=== PATIENT | male | born 1965 | race American Indian/Alaskan Native ===

== ENCOUNTER 2017-04-21 13:54 | Day surgery (SDC) | payer BC, OTHER ==
[2017-04-21] MEDS ORDERED: Glucagon,Human Recombinant 1 MG Vial IM ONE (14:01)
[2017-04-21] MEDS ORDERED: Glucagon,Human Recombinant 1 MG Vial IVPUSH ONE (14:05)
--- NOTE | 2017-04-21 14:05 | EDM.PDOC ---
ED HPI GENERAL MEDICAL PROBLEM - General Chief Complaint: Gastrointestinal Problem Stated Complaint: CHOKING Time Seen by Provider: 04/21/17 13:56 Source of Information: Reports: Patient History Limitations: Reports: No Limitations - History of Present Illness INITIAL COMMENTS - FREE TEXT/NARRATIVE: HISTORY AND PHYSICAL: History of present illness: Patient is a 52-year-old male who presents to the emergency room with complaints of a food bolus in his esophagus. He states he was eating turkey when he felt a piece get stuck in his throat. He does have a previous history of EGDs for food bolus extraction, 3 previous EGDs. This occurred a approximately 1-1/2 hours prior to arrival. Since that time he has been trying to swallow water, soup, food and is unsuccessful. He has no difficulty breathing but is unable to swallow his saliva. With his previous workup, he states he does not have any strictures and has never been dilated. Review of systems: As per history of present illness and below otherwise all systems reviewed and negative. Past medical history: As per history of present illness and as reviewed below otherwise noncontributory. Surgical history: As per history of present illness and as reviewed below otherwise noncontributory. Social history: No reported history of drug or alcohol abuse. Family history: As per history of present illness and as reviewed below otherwise noncontributory. Physical exam: HEENT: Atraumatic, normocephalic, pupils reactive, negative for conjunctival pallor or scleral icterus, mucous membranes moist, throat clear, neck supple, nontender, trachea midline. Lungs: Clear to auscultation, breath sounds equal bilaterally, chest nontender. Heart: S1S2, regular, negative for clicks, rubs, or JVD. Abdomen: Soft, nondistended, nontender. Negative for masses or hepatosplenomegaly. Negative for costovertebral tenderness. Pelvis: Stable nontender. Genitourinary: Deferred. Rectal: Deferred. Extremities: Atraumatic, negative for cords or calf pain. Neurovascular unremarkable. Neuro: Awake, alert, oriented. Cranial nerves II through XII unremarkable. Cerebellum unremarkable. Motor and sensory unremarkable throughout. Exam nonfocal. 1445- After the glucagon was given, the patient is requesting to attempt to try some flat 7-Up - unsuccessful. 1500- the general surgeon, Dr. Boyle was paged at this time. He is currently in a procedure and will come down to evaluate the patient afterwards. The patient is resting easy on the cot and breathes without difficulty. We'll continue to monitor 1520- the general surgery resident is here to evaluate the patient. 1532- Dr. Boyle is here to evaluate the patient. The patient will go back to the OR for EGD. She remained stable and no changes in his status. Diagnostics: x Therapeutics: Glucagon Impression: Esophageal food bolus Plan: To the OR under the care of Dr. Boyle. Definitive disposition and diagnosis as appropriate pending reevaluation and review of above. Onset: Today Duration: Hour(s): - Related Data Allergies Allergy/AdvReac Type Severity Reaction Status Date / Time No Known Allergies Allergy Verified 04/21/17 14:21 Home Meds: Home Meds . [No Known Home Meds] 04/21/17 [History] Past Medical History - Past Health History Medical/Surgical History: Denies Medical/Surgical History Gastrointestinal History: Reports: Other (See Below) Other Gastrointestinal History: 4 egd's to remove food from esophagus - Infectious Disease History Infectious Disease History: Reports: None Social & Family History - Family History Family Medical History: Noncontributory - Tobacco Use Smoking Status *Q: Never Smoker Packs/Tins Daily: 0.5 Second Hand Smoke Exposure: No - Alcohol Use Days Per Week of Alcohol Use: 1 Number of Drinks Per Day: 2 Total Drinks Per Week: 2 - Recreational Drug Use Recreational Drug Use: No ED ROS GENERAL - Review of Systems Review Of Systems: ROS reveals no pertinent complaints other than HPI. ED EXAM, GI/ABD - Physical Exam Exam: See Below (See dictation) Course - Vital Signs Last Recorded V/S: Last Vital Signs Temp 36.5 C 04/21/17 14:22 Pulse 110 H 04/21/17 14:22 Resp 14 04/21/17 14:22 BP 142/87 H 04/21/17 14:22 Pulse Ox 97 04/21/17 14:22 - Orders/Labs/Meds Orders: Active Orders 24 hr Category Date Time Status Notify Provider Consults [RC] ASDIRECTED Care 04/21/17 14:59 Active Consult to Physician [CONS] Stat Cons 04/21/17 14:59 Active Chest 1V Frontal [CR] Stat Exams 04/21/17 14:16 Taken Meds: Medications Discontinued Medications Generic Name Dose Route Start Last Admin Trade Name Janelle PRN Reason Stop Dose Admin Glucagon 1 mg 04/21/17 14:01 04/21/17 14:18 Glucagen IM 04/21/17 14:02 Not Given ONETIME ONE Glucagon 1 mg 04/21/17 14:05 04/21/17 14:35 Glucagen IVPUSH 04/21/17 14:06 1 mg ONETIME ONE Administration Departure - Departure Time of Disposition: 15:34 Disposition: Still A Patient 30 Clinical Impression: Food impaction of esophagus Qualifiers: Encounter type: initial encounter Qualified Code(s): T18.128A - Food in esophagus causing other injury, initial encounter - Discharge Information Referrals: PCP,None [Primary Care Provider] - Forms: ED Department Discharge - My Orders Last 24 Hours: My Active Orders 04/21/17 14:16 Chest 1V Frontal [CR] Stat 04/21/17 14:59 Notify Provider Consults [RC] ASDIRECTED Consult to Physician [CONS] Stat - Assessment/Plan Last 24 Hours: My Active Orders 04/21/17 14:16 Chest 1V Frontal [CR] Stat 04/21/17 14:59 Notify Provider Consults [RC] ASDIRECTED Consult to Physician [CONS] Stat
--- NOTE | 2017-04-21 15:33 | PCM.CONS ---
<Luke Little - Last Filed: 04/21/17 15:25> H&P History of Present Illness - General Date of Service: 04/21/17 Admit Problem/Dx: Food stuck in throat. Source of Information: Patient History Limitations: Reports: No Limitations - History of Present Illness Initial Comments - Free Text/Narative: Mr. Schneider is a 52 year old male with no PMH, only PSH is three previous EGD for meat stuck in his throat which was removed each time, last occurrence 4 years prior, no allergies, no significant family history who presents after eating his first bite of turkey at approximately noon today, feeling it become stuck in his throat, no shortness of breath, no increased chest pain besides pressure at the site of the food, feels nausea and attempts to vomit have only produced spit. Deneis any other abdominal pain, fever, chills. He states the previous three times this has occurred the food was able to be removed without incident and his symptoms quickly resolved. In the ED a fluid challenge was attempted which was not able to pass to his stomach. Onset of Symptoms: Reports: Today Symptom Onset Date: 04/21/17 Symptom Onset Time: 12:00 Location: Reports: Chest Quality: Reports: Pressure Severity: Mild Improves with: Reports: None Worsens with: Reports: None Associated Symptoms: Reports: Nausea/Vomiting. Denies: Chest Pain, Cough, Fever /Chills, Shortness of Breath - Related Data Allergies/Adverse Reactions: Allergies Allergy/AdvReac Type Severity Reaction Status Date / Time No Known Allergies Allergy Verified 04/21/17 14:21 Home Medications: Home Meds . [No Known Home Meds] 04/21/17 [History] Past Medical History - Past Health History Medical/Surgical History: Denies Medical/Surgical History Gastrointestinal History: Reports: Other (See Below) Other Gastrointestinal History: 4 egd's to remove food from esophagus - Infectious Disease History Infectious Disease History: Reports: None Social & Family History - Family History Family Medical History: Noncontributory - Tobacco Use Smoking Status *Q: Never Smoker Packs/Tins Daily: 0.5 Second Hand Smoke Exposure: No - Caffeine Use Caffeine Use: Reports: Coffee - Alcohol Use Days Per Week of Alcohol Use: 1 Number of Drinks Per Day: 2 Total Drinks Per Week: 2 - Recreational Drug Use Recreational Drug Use: No H&P Review of Systems - Review of Systems: Review Of Systems: See Below General: Denies: Fever, Chills, Weakness HEENT: Reports: Other (See HPI) Pulmonary: Reports: No Symptoms Cardiovascular: Reports: No Symptoms Gastrointestinal: Reports: Other (See HPI) Genitourinary: Reports: No Symptoms Musculoskeletal: Reports: No Symptoms Skin: Reports: No Symptoms Psychiatric: Reports: No Symptoms Neurological: Reports: No Symptoms Hematologic/Lymphatic: Reports: No Symptoms Immunologic: Reports: No Symptoms Exam - Exam Exam: See Below - Vital Signs Vital Signs: Last Vital Signs Temp 36.5 C 04/21/17 14:22 Pulse 110 H 04/21/17 14:22 Resp 14 04/21/17 14:22 BP 142/87 H 04/21/17 14:22 Pulse Ox 97 04/21/17 14:22 Weight: 200 lb - Exam Quality Assessment: No: Supplemental Oxygen, Urinary Catheter, Restraints General: Alert, Oriented, Cooperative, Mild Distress HEENT: Conjunctiva Clear, EOMI, Hearing Intact, Posterior Pharynx Clear Neck: Supple, Trachea Midline Lungs: Clear to Auscultation, Normal Respiratory Effort Cardiovascular: Regular Rate, Regular Rhythm GI/Abdominal Exam: Soft, Non-Tender, No Distention Extremities: Normal Inspection, Normal Range of Motion, Normal Capillary Refill Peripheral Pulses: 2+: Radial (L), Radial (R), Dorsalis Pedis (L), Dorsalis Pedis (R) Skin: Warm, Dry, Intact Neurological: Cranial Nerves Intact Neuro Extensive - Mental Status: Alert, Oriented x3, Normal Mood/Affect, Normal Cognition, Memory Intact Psychiatric: Alert, Normal Affect, Normal Mood Consult PN Assessment/Plan Procedures: Procedures EGD REMOVE FOREIGN BODY (10/05/15) ELECTROCARDIOGRAM TRACING (10/05/15) EMERGENCY DEPT VISIT (10/05/15) EMERGENCY DEPT VISIT (07/04/15) THER/PROPH/DIAG INJ IV PUSH (10/05/15) (1) Food impaction of esophagus SNOMED Code(s): 3905154 Code(s): T18.128A - FOOD IN ESOPHAGUS CAUSING OTHER INJURY, INITIAL ENCOUNTER Current Visit: No QualifierTitle: Encounter type: subsequent encounter Qualified Code(s): T18.128D - Food in esophagus causing other injury, subsequent encounter Assessment:: Mr. Schneider is a 52 year old male with no significant PMH, no known allergies, no home medications, who drinks 7 drinks per week and chews tobacco, presents after eating turkey and feeling it lodged in his throat without any other symptoms of shortness of breath, radiating chest pain, fever or chills. He does have nausea and dry heaves productive of only saliva. Patient states this will be the 3-4 time this has happened, last occurrence 4 years prior, always occurs with meat, has been relieved with EGD with extraction with complication in the past. Fluid challenge attempted without improvement. Problem List Initiated/Reviewed/Updated: Yes Plan: The risks, benefits and alternatives of EGD with possible foreign object extraction were discussed including bleeding and perforation which would require transfer. The risk of aspiration was also discussed. The patient stated his agreement with proceeding with the procedure. present at bedside. The patent states he would like to be full code. We will proceed as soon as possible with the above listed procedure. <Joey Boyle - Last Filed: 04/21/17 15:51> Exam - Vital Signs Vital Signs: Last Vital Signs Temp 97.7 F 04/21/17 14:22 Pulse 110 H 04/21/17 14:22 Resp 14 04/21/17 14:22 BP 142/87 H 04/21/17 14:22 Pulse Ox 97 04/21/17 14:22 Consult PN Assessment/Plan Procedures: Procedures EGD REMOVE FOREIGN BODY (10/05/15) ELECTROCARDIOGRAM TRACING (10/05/15) EMERGENCY DEPT VISIT (10/05/15) EMERGENCY DEPT VISIT (07/04/15) THER/PROPH/DIAG INJ IV PUSH (10/05/15) (1) Food impaction of esophagus SNOMED Code(s): 9950964 Code(s): T18.128A - FOOD IN ESOPHAGUS CAUSING OTHER INJURY, INITIAL ENCOUNTER Priority: High Current Visit: Yes Qualifiers: Encounter type: initial encounter Qualified Code(s): T18.128A - Food in esophagus causing other injury, initial encounter Plan: Patient seen and examined with Dr. Little. I agree with his assessment and plan. Esophagogastroduodenoscopy with removal of esophageal foreign body and biopsy. The operative procedure, along with the risks, including, but not limited to, bleeding, perforation, and the need for surgery were discussed with the patient who voices understanding, offers no questions and wishes to proceed.
[2017-04-21] MEDS ORDERED: Rocuronium 10 MG/ML 10 ML Syringe ONE (15:37)
[2017-04-21] MEDS ORDERED: Lidocaine 2% 5 ML SDV ONE (15:37)
[2017-04-21] MEDS ORDERED: Ondansetron 4 MG/2 ML SDV ONE (15:37)
[2017-04-21] MEDS ORDERED: Succinylcholine/Normal Saline 200 MG/10 ML Syringe ONE (15:37)
[2017-04-21] MEDS ORDERED: Midazolam 1 MG/ML 2 ML SDV ONE (15:38)
[2017-04-21] MEDS ORDERED: fentaNYL 250 MCG/5 ML SDV ONE (15:38)
[2017-04-21] MEDS ORDERED: Propofol 200 MG/20 ML SDV ONE (15:38)
--- NOTE | 2017-04-21 16:03 | PCM.PREANE ---
Preanesthetic Assessment - Anesthesia/Transfusion/Family Hx Anesthesia History: Prior Anesthesia Without Reaction - Review of Systems General: No Symptoms Pulmonary: No Symptoms Cardiovascular: No Symptoms Gastrointestinal: Difficulty Swallowing Neurological: No Symptoms Other: Reports: None - Physical Assessment NPO Status Date: 04/21/17 NPO Status Time: 14:00 O2 Sat by Pulse Oximetry: 97 Respiratory Rate: 14 Vital Signs: Last Vital Signs Temp 97.7 F 04/21/17 14:22 Pulse 110 H 04/21/17 14:22 Resp 14 04/21/17 14:22 BP 142/87 H 04/21/17 14:22 Pulse Ox 97 04/21/17 14:22 Weight: 90.718 kg ASA Class: 2E Mental Status: Alert & Oriented x3 Airway Class: Mallampati = 2 Dentition: Reports: Normal Dentition Thyro-Mental Finger Breadths: 3 Mouth Opening Finger Breadths: 3 ROM/Head Extension: Full Lungs: Clear to Auscultation, Normal Respiratory Effort Cardiovascular: Regular Rate, Regular Rhythm - Allergies Allergies/Adverse Reactions: Allergies Allergy/AdvReac Type Severity Reaction Status Date / Time No Known Allergies Allergy Verified 04/21/17 14:21 - Acknowledgements Anesthesia Type Planned: General Anesthesia Pt an Appropriate Candidate for the Planned Anesthesia: Yes Alternatives and Risks of Anesthesia Discussed w Pt/Guardian: Yes Pt/Guardian Understands and Agrees with Anesthesia Plan: Yes PreAnesthesia Questionnaire - Past Health History Medical/Surgical History: Denies Medical/Surgical History HEENT History: Reports: None Cardiovascular History: Reports: None Respiratory History: Reports: None Gastrointestinal History: Reports: Other (See Below) Other Gastrointestinal History: 4 egd's to remove food from esophagus Genitourinary History: Reports: None Musculoskeletal History: Reports: None Neurological History: Reports: None Psychiatric History: Reports: None Endocrine/Metabolic History: Reports: None Hematologic History: Reports: None Immunologic History: Reports: None Oncologic (Cancer) History: Reports: None Dermatologic History: Reports: None - Infectious Disease History Infectious Disease History: Reports: None - SUBSTANCE USE Smoking Status *Q: Never Smoker Tobacco Use Within Last Twelve Months: Snuff/Dip Second Hand Smoke Exposure: No Days Per Week of Alcohol Use: 1 Number of Drinks Per Day: 2 Total Drinks Per Week: 2 Recreational Drug Use History: No - HOME MEDS Home Medications: Home Meds . [No Known Home Meds] 04/21/17 [History] - CURRENT (IN HOUSE) MEDS Current Meds: Current Medications Discontinued Medications Fentanyl (Sublimaze) Confirm Administered Dose 250 mcg .ROUTE .STK-MED ONE Stop: 04/21/17 15:39 Glucagon (Glucagen) 1 mg IM ONETIME ONE Stop: 04/21/17 14:02 Last Admin: 04/21/17 14:18 Dose: Not Given Glucagon (Glucagen) 1 mg IVPUSH ONETIME ONE Stop: 04/21/17 14:06 Last Admin: 04/21/17 14:35 Dose: 1 mg Lidocaine (Xylocaine-Mpf 2%) Confirm Administered Dose 5 ml .ROUTE .STK-MED ONE Stop: 04/21/17 15:38 Midazolam HCl (Versed 1 Mg/Ml) Confirm Administered Dose 2 mg .ROUTE .STK-MED ONE Stop: 04/21/17 15:39 Ondansetron HCl (Zofran) Confirm Administered Dose 4 mg .ROUTE .STK-MED ONE Stop: 04/21/17 15:38 Propofol (Diprivan 20 Ml) Confirm Administered Dose 200 mg .ROUTE .STK-MED ONE Stop: 04/21/17 15:39 Rocuronium Willard (Zemuron) Confirm Administered Dose 100 mg .ROUTE .STK-MED ONE Stop: 04/21/17 15:38 Succinylcholine Chloride (Succinylcholine In Ns Pf) Confirm Administered Dose 200 mg .ROUTE .STK-MED ONE Stop: 04/21/17 15:38
[2017-04-21] MEDS ORDERED: Benzocaine/Cetylpyridinium/Menthol Lozenge MUCMEM PRN (16:38)
--- NOTE | 2017-04-21 16:39 | PCM.OPNOTE ---
- General Post-Op/Procedure Note Date of Surgery/Procedure: 04/21/17 Operative Procedure(s): EGD w/ removal of esophageal foreign body Pre Op Diagnosis: Foreign body obstruction of the esophagus Post-Op Diagnosis: Foreign body obstruction of the esophagus. Gastritis. Anesthesia Technique: General ET Tube (ASA IIE) Primary Surgeon: Joey Boyle Lpn Care Manager: Luke Little Condition: Fair Free Text/Narrative:: Dictation [id number] CPT CODE [id number]
[2017-04-21] MEDS ORDERED: fentaNYL 100 MCG/2 ML SDV IVPUSH PRN (16:41)
--- NOTE | 2017-04-21 16:48 | OR ---
SURGEON: Joey Boyle M.D. DATE OF PROCEDURE: 04/21/2017 OPERATION PERFORMED: Esophagogastroduodenoscopy with foreign body removal and biopsy of stomach. MEDIA PLANNER / BUYER: Dr. Little, PGY-2. ANESTHESIA: General endotracheal. ASA CLASSIFICATION: IIE. PREOPERATIVE DIAGNOSIS: Foreign body obstruction of the esophagus. POSTOPERATIVE DIAGNOSIS: Foreign body obstruction of the esophagus. DESCRIPTION OF PROCEDURE: The patient was taken to the operating room, placed on the operating table in supine position. Time-out was called for appropriate identification of patient and procedure. Following satisfactory attainment of general endotracheal anesthesia, a bite-block was placed between the patient's teeth. The gastroscope was inserted through the bite-block into the mouth and advanced without difficulty to the distal esophagus where one could see the foreign body obstruction. We attempted to remove this with the 3-prong grasper. However, the meat fell apart. I was then able to reinsert the scope and this time pushed the meat through the GE junction. There was no evidence of an esophageal stricture. With the 2nd attempt, the foreign body was easily advanced into the stomach and photographs of this area were taken. The scope was subsequently advanced through the stomach into the duodenum and examination now carried out in a retrograde fashion. The duodenum shows no acute inflammatory changes or ulcerations. The stomach does show [id number] gastritis. Antral biopsies were obtained to look for the presence of Helicobacter pylori. The gastroscope was then retroflexed to visualize the proximal stomach where the foreign body was again seen. I did not see a significant hiatal hernia. The gastroscope was then straightened and slowly withdrawn carefully visualizing the greater and lesser curvatures. The stomach was aspirated as the scope was withdrawn. There was no resistance to manipulation of the gastroscope in the esophagus and no obvious stricture noted. No tumor mass was identified. The esophagus still demonstrates good contractility. No mid or proximal lesions were identified. The gastroscope was then removed with the patient having tolerated the procedure well and the foreign body removed. The patient tolerated the procedure well and was taken to recovery room in stable condition. HEYDI YO /[id number]
--- NOTE | 2017-04-21 16:49 | PCM.POSTAN ---
POST ANESTHESIA ASSESSMENT - MENTAL STATUS Mental Status: Alert, Oriented - VITAL SIGNS Pulse Rate: 89 SaO2: 99 Resp Rate: 20 - RESPIRATORY Respiratory Status: Respiratory Rate WNL, Airway Patent, O2 Saturation Stable - CARDIOVASCULAR CV Status: Pulse Rate WNL, Blood Pressure Stable - GASTROINTESTINAL GI Status: No Symptoms - PAIN Pain Score: 0 - POST OP HYDRATION Hydration Status: Adequate & Stable
--- NOTE | 2017-04-21 17:42 | PCM48HPAN ---
Post Anesthesia Note - EVALUATION WITHIN 48HRS OF ANESTHETIC Vital Signs in Normal Range: Yes Patient Participated in Evaluation: Yes Respiratory Function Stable: Yes Airway Patent: Yes Cardiovascular Function Stable: Yes Hydration Status Stable: Yes Pain Control Satisfactory: Yes Nausea and Vomiting Control Satisfactory: Yes Mental Status Recovered: Yes
[2017-04-21 18:48] VITALS: BP 112/73
--- NOTE | 2017-04-22 13:25 | CR ---
EXAM DATE: 04/21/17 PATIENT'S AGE: 52 Patient: JUAN DIEGO SINGH Facility: [place], [place] Site . Site : 1965 Study: XRay Chest [id number]/23/2017 2:51:52 PM Ordering Physician: Doctor Alonzo Final Report: INDICATION: Choked on a piece of meat. Technique: Portable chest. Findings: Heart and mediastinum are normal in size and configuration. Pulmonary vessels are normal. The lungs are clear and are equally expanded. No pleural fluid. No acute bony abnormality. Impression: No acute chest disease. Dictated by Bakari Davalos MD @ Apr 21 2017 3:06PM (Electronic Signature) Report Signed by Proxy. ELIAS
== END 2017-04-21 17:50 | disposition home or self-care (01) ==
LOC: MW.ED 13:54 → MW.SDS 15:40 → MW.MS 17:03 → MW.SDS 17:50
PROVIDERS: ATTEND Surgery
DX: T18.128A Food in esophagus causing other injury, initial encounter (principal); K29.50 Unspecified chronic gastritis without bleeding; Z98.890 Other specified postprocedural states
CPT/HCPCS: 43239; 43247; 71010; 96374; 99285; J1610; J2250; J2405; J3010; 00740; 88305; 88312; J2704

== ENCOUNTER 2017-12-14 23:06 | Emergency (ER) | payer BC, OTHER ==
[2017-12-14] MEDS ORDERED: Sodium Chloride 0.9% 10 ML Syringe FLUSH PRN (23:20)
[2017-12-14] MEDS ORDERED: Sodium Chloride 0.9% 2.5 ML Syringe FLUSH PRN (23:20)
[2017-12-14] MEDS ORDERED: Glucagon,Human Recombinant 1 MG Vial IVPUSH ONE (23:20)
[2017-12-14] MEDS ORDERED: Ondansetron 4 MG/2 ML SDV IVPUSH ONE (23:20)
--- NOTE | 2017-12-14 23:23 | EDM.PDOC ---
ED HPI GENERAL MEDICAL PROBLEM - General Chief Complaint: General Stated Complaint: CHOKING Time Seen by Provider: 12/14/17 23:15 - History of Present Illness INITIAL COMMENTS - FREE TEXT/NARRATIVE: HISTORY AND PHYSICAL: History of present illness: The patient is a healthy 52-year-old male with no stated medical history and no abdominal surgical history who presents with complaints of feeling like a piece of hamburger is stuck in his lower esophagus. The patient has had this happen 3 prior times, 2 times in 2015 requiring EGD and one time March 2017 requiring EGD all 3 times here. The patient says he was eating a hamburger and felt it get stuck and he has had no prior chest pain shortness of breath and says that he cannot take any thing by mouth including sips of water or will come out. He is not drooling and has no gross discomfort other than a foreign body sensation. He has no abdominal pain and he has had no recent illnesses fevers or chills. Review of systems: As per history of present illness and below otherwise all systems reviewed and negative. Past medical history: As per history of present illness and as reviewed below otherwise noncontributory. Surgical history: As per history of present illness and as reviewed below otherwise noncontributory. Social history: No reported history of drug or alcohol abuse. Family history: As per history of present illness and as reviewed below otherwise noncontributory. Physical exam: General: Well-developed well-nourished man who is nontoxic and speaking clearly and easily in the ED. Vital signs are noted by me HEENT: Atraumatic, normocephalic, negative for conjunctival pallor or scleral icterus, mucous membranes moist, throat clear, neck supple, nontender, trachea midline. Lungs: Clear to auscultation, breath sounds equal bilaterally, chest nontender. No wheezing stridor or work of breathing Heart: S1S2, regular in rhythm no overt murmurs Abdomen: Soft, nondistended, nontender. Negative for masses or hepatosplenomegaly. NABS Pelvis: Deferred Genitourinary: Deferred. Rectal: Deferred. Extremities: Atraumatic, full range of motion without defects or deficits Neurovascular unremarkable. Neuro: Awake, alert, oriented. Cranial nerves II through XII unremarkable. Cerebellum unremarkable. Motor and sensory unremarkable throughout. Exam nonfocal. Diagnostics: [] Therapeutics: IV fluids Zofran and glucagon I told patient that we would try some medications before calling the surgeon and he says that "those never work". 2338: Patient states that he does not feel any better and the case was discussed with Dr. Harrell who will come in to see the patient and evaluate for care. Please see his formal consult for his recommendations 0015: Patient states that the foreign body obstruction is no longer present and he has taken 3 glasses of water without vomiting or discomfort. He would like to be discharged home. I will inform Dr. Harrell of this positive results. Impression: Esophageal Foreign body, improved Definitive disposition and diagnosis as appropriate pending reevaluation and review of above. sub-sternal Pain Score (Numeric/FACES): 8 - Related Data Allergies Allergy/AdvReac Type Severity Reaction Status Date / Time No Known Allergies Allergy Verified 12/14/17 23:23 Home Meds: Home Meds . [No Known Home Meds] 04/21/17 [History] Past Medical History - Past Health History Medical/Surgical History: Denies Medical/Surgical History HEENT History: Reports: None Cardiovascular History: Reports: None Respiratory History: Reports: None Gastrointestinal History: Reports: Other (See Below) Other Gastrointestinal History: 4 egd's to remove food from esophagus Genitourinary History: Reports: None Musculoskeletal History: Reports: None Neurological History: Reports: None Psychiatric History: Reports: None Endocrine/Metabolic History: Reports: None Hematologic History: Reports: None Immunologic History: Reports: None Oncologic (Cancer) History: Reports: None Dermatologic History: Reports: None - Infectious Disease History Infectious Disease History: Reports: None Social & Family History - Family History Family Medical History: Noncontributory - Caffeine Use Caffeine Use: Reports: Coffee ED ROS GENERAL - Review of Systems Review Of Systems: ROS reveals no pertinent complaints other than HPI. ED EXAM, GENERAL - Physical Exam Exam: See Below (See dictation) Course - Vital Signs Last Recorded V/S: Last Vital Signs Temp 36.4 C 12/14/17 23:11 Pulse 76 12/14/17 23:11 Resp 20 12/14/17 23:11 BP 131/87 12/14/17 23:11 Pulse Ox 97 12/14/17 23:11 - Orders/Labs/Meds Orders: Active Orders 24 hr Category Date Time Status Notify Provider Consults [RC] ASDIRECTED Care 12/14/17 23:41 Active Consult to Physician [CONS] Stat Cons 12/14/17 23:41 Active Sodium Chloride 0.9% [Normal Saline] 1,000 ml Med 12/14/17 23:30 Active IV ASDIRECTED Sodium Chloride 0.9% [Saline Flush] Med 12/14/17 23:20 Active 10 ml FLUSH ASDIRECTED PRN Sodium Chloride 0.9% [Saline Flush] Med 12/14/17 23:20 Active 2.5 ml FLUSH ASDIRECTED PRN Saline Lock Insert [OM.PC] Stat Oth 12/14/17 23:20 Ordered Medication Orders Sodium Chloride (Normal Saline) 1,000 mls @ 125 mls/hr IV ASDIRECTED CORBY Last Admin: 12/14/17 23:35 Dose: 125 mls/hr Sodium Chloride (Saline Flush) 10 ml FLUSH ASDIRECTED PRN PRN Reason: Keep Vein Open Sodium Chloride (Saline Flush) 2.5 ml FLUSH ASDIRECTED PRN PRN Reason: Keep Vein Open Meds: Medications Generic Name Dose Route Start Last Admin Trade Name Freq PRN Reason Stop Dose Admin Sodium Chloride 1,000 mls @ 125 mls/hr 12/14/17 23:30 12/14/17 23:35 Normal Saline IV 125 mls/hr ASDIRECTED CORBY Administration Sodium Chloride 10 ml 12/14/17 23:20 Saline Flush FLUSH ASDIRECTED PRN Keep Vein Open Sodium Chloride 2.5 ml 12/14/17 23:20 Saline Flush FLUSH ASDIRECTED PRN Keep Vein Open Discontinued Medications Generic Name Dose Route Start Last Admin Trade Name Freq PRN Reason Stop Dose Admin Glucagon 1 mg 12/14/17 23:20 12/14/17 23:35 Glucagen IVPUSH 12/14/17 23:21 1 mg ONETIME ONE Administration Ondansetron HCl 4 mg 12/14/17 23:20 12/14/17 23:34 Zofran IVPUSH 12/14/17 23:21 4 mg ONETIME ONE Administration Departure - Departure Time of Disposition: 00:19 Disposition: Home, Self-Care 01 Condition: Good Clinical Impression: Food impaction of esophagus Qualifiers: Encounter type: initial encounter Qualified Code(s): T18.128A - Food in esophagus causing other injury, initial encounter - Discharge Information Referrals: PCP,None [Primary Care Provider] - Forms: ED Department Discharge Additional Instructions: The following information is given to patients seen in the emergency department who are being discharged to home. This information is to outline your options for follow-up care. We provide all patients seen in our emergency department with a follow-up referral. The need for follow-up, as well as the timing and circumstances, are variable depending upon the specifics of your emergency department visit. If you don't have a primary care physician on staff, we will provide you with a referral. We always advise you to contact your personal physician following an emergency department visit to inform them of the circumstance of the visit and for follow-up with them and/or the need for any referrals to a consulting specialist. The emergency department will also refer you to a specialist when appropriate. This referral assures that you have the opportunity for followup care with a specialist. All of these measure are taken in an effort to provide you with optimal care, which includes your followup. Under all circumstances we always encourage you to contact your private physician who remains a resource for coordinating your care. When calling for followup care, please make the office aware that this follow-up is from your recent emergency room visit. If for any reason you are refused follow-up, please contact the [facility] emergency department at and ask to speak to the emergency department charge nurse. [facility] Primary care- [place] [address] Please eat soft diet for next 24 hours and chew food thoroughly. Please call and schedule a follow-up appointment with primary care to discuss referral to GI as this has been a recurrent problem. Return to ER as needed and as discussed - My Orders Last 24 Hours: My Active Orders 12/14/17 23:20 Sodium Chloride 0.9% [Saline Flush] 10 ml FLUSH ASDIRECTED PRN Sodium Chloride 0.9% [Saline Flush] 2.5 ml FLUSH ASDIRECTED PRN Saline Lock Insert [OM.PC] Stat 12/14/17 23:30 Sodium Chloride 0.9% [Normal Saline] 1,000 ml IV ASDIRECTED 12/14/17 23:41 Notify Provider Consults [RC] ASDIRECTED Consult to Physician [CONS] Stat - Assessment/Plan Last 24 Hours: My Active Orders 12/14/17 23:20 Sodium Chloride 0.9% [Saline Flush] 10 ml FLUSH ASDIRECTED PRN Sodium Chloride 0.9% [Saline Flush] 2.5 ml FLUSH ASDIRECTED PRN Saline Lock Insert [OM.PC] Stat 12/14/17 23:30 Sodium Chloride 0.9% [Normal Saline] 1,000 ml IV ASDIRECTED 12/14/17 23:41 Notify Provider Consults [RC] ASDIRECTED Consult to Physician [CONS] Stat
[2017-12-14] MEDS ORDERED: Sodium Chloride 0.9% 1,000 ML IV SCH (23:30)
[2017-12-15 00:25] VITALS: BP 121/80
--- NOTE | 2017-12-15 00:53 | PCM.SN ---
- Free Text/Narrative Note: pt seen, chart reviewed; fu w gi specialist, or general surgery, or primary care provider, will benefit to have UGI swallow study to look at the anatomy; pt voiced understanding; thanks for the consult, [id number]
--- NOTE | 2017-12-15 03:15 | CONS ---
DATE OF CONSULTATION: DATE OF : 1965 PRIMARY CARE PHYSICIAN: None PCP CONCERNING QUESTION: From Dr. Gonsales food stuck. HISTORY OF PRESENT ILLNESS: The patient is a 52-year-old, gentleman, who has pretty long history of food stuck in the past, 2 times in 2016, and 1 time in 2017, and this the 4th time. The patient remarked that he had a piece of hamburger about 4 hours before the ER visit and food stuck there and does not get anything through and seek help in the emergency room, and Dr. Gonsales gave him some glucagon, and does not seem to resolve, and Surgery was consulted. PAST MEDICAL HISTORY: Significant for no diabetes, [place]. PAST SURGICAL HISTORY: Multiple EGD. ALLERGIES: Please refer to nursing for details. MEDICATION: Please refer to nursing for details. REVIEW OF SYSTEMS: Same as history of present illness. FAMILY HISTORY: Noncontributory. PHYSICAL EXAMINATION: GENERAL: A very pleasant gentleman in no acute distress. HEENT: Normocephalic and atraumatic. Sclerae anicteric. LUNGS: Clear to auscultation. HEART: Regular rate and rhythm. ABDOMEN: Soft, nondistended. No pulsating. Tender midline abdominal structure. Nontender in epigastrium. IMPRESSION: Another episode of food stuck and we need endoscopy study. However, upon talking to the patient and gave patient a glass of water, the patient is able to swallow without problem, and the patient also mentioned that he think that the hamburger went through. Gave patient little bit instruction and education and the patient probably will follow up with a GI specialist, so another surgery for elective procedure EGD with dilatation, or make a followup appointment with General surgery. Patient probably would benefit to have an upper GI swallow study to look at the anatomy. The patient voiced understanding. Follow up with me on as needed basis. MAURA / SRINATH /[id number] ELIAS
== END 2017-12-15 00:35 | disposition home or self-care (01) ==
LOC: MW.ED 23:06
DX: T18.128A Food in esophagus causing other injury, initial encounter (principal)
CPT/HCPCS: 96361; 96374; 99283; J1610; J2405; J7040

== ENCOUNTER 2018-01-13 11:23 | Day surgery (SDC) | payer BC, OTHER ==
[~2018-01-13 11:23] MED LIST: Lactated Ringers 1,000 ML IV SCH
--- NOTE | 2018-01-13 11:59 | PCM.PREANE ---
Preanesthetic Assessment - Anesthesia/Transfusion/Family Hx Anesthesia History: Prior Anesthesia Without Reaction (Multiple GETA) Family History of Anesthesia Reaction: No Transfusion History: No Prior Transfusion(s) - Review of Systems General: No Symptoms Pulmonary: No Symptoms Cardiovascular: No Symptoms Gastrointestinal: No Symptoms Neurological: No Symptoms Other: Reports: None - Physical Assessment NPO Status Date: 01/12/18 NPO Status Time: 07:00 (Clears) Height: 5 ft 9 in Weight: 92.079 kg ASA Class: 2 Mental Status: Alert & Oriented x3 Airway Class: Mallampati = 2 Dentition: Reports: Normal Dentition Thyro-Mental Finger Breadths: 3 Mouth Opening Finger Breadths: 3 ROM/Head Extension: Full Lungs: Clear to Auscultation, Normal Respiratory Effort Cardiovascular: Regular Rate, Regular Rhythm - Allergies Allergies/Adverse Reactions: Allergies Allergy/AdvReac Type Severity Reaction Status Date / Time No Known Allergies Allergy Verified 12/14/17 23:23 - Acknowledgements Anesthesia Type Planned: MAC Pt an Appropriate Candidate for the Planned Anesthesia: Yes Alternatives and Risks of Anesthesia Discussed w Pt/Guardian: Yes Pt/Guardian Understands and Agrees with Anesthesia Plan: Yes PreAnesthesia Questionnaire - Past Health History Medical/Surgical History: Denies Medical/Surgical History HEENT History: Reports: None Cardiovascular History: Reports: None Respiratory History: Reports: None Gastrointestinal History: Reports: Other (See Below) Other Gastrointestinal History: dysphagia, esophageal stricture with history of EGD for FB multiple times Genitourinary History: Reports: None Musculoskeletal History: Reports: Fracture Other Musculoskeletal History: hx fx wrist Neurological History: Reports: None Psychiatric History: Reports: None Endocrine/Metabolic History: Reports: Obesity/BMI 30+ Hematologic History: Reports: None Immunologic History: Reports: None Oncologic (Cancer) History: Reports: None Dermatologic History: Reports: None - Infectious Disease History Infectious Disease History: Reports: None - Past Surgical History Head Surgeries/Procedures: Reports: None GI Surgical History: Reports: EGD (Multiple EGD's for FB) - SUBSTANCE USE Tobacco Use Within Last Twelve Months: Other (See Below) Recreational Drug Use History: No - HOME MEDS Home Medications: Home Meds . [No Known Home Meds] 04/21/17 [History] - CURRENT (IN HOUSE) MEDS Current Meds: Current Medications Lactated Ringer's (Ringers, Lactated) 1,000 mls @ 125 mls/hr IV ASDIRECTED CORBY
[2018-01-13] MEDS ORDERED: Propofol 200 MG/20 ML SDV ONE (12:47)
[2018-01-13] MEDS ORDERED: fentaNYL 100 MCG/2 ML SDV ONE (12:48)
[2018-01-13] MEDS ORDERED: Lidocaine 2% 5 ML SDV ONE (12:48)
[2018-01-13] MEDS ORDERED: Midazolam 1 MG/ML 2 ML SDV ONE (12:48)
--- NOTE | 2018-01-13 13:22 | PCM.OPNOTE ---
- General Post-Op/Procedure Note Date of Surgery/Procedure: 01/13/18 Operative Procedure(s): egd w bx. colonoscopy Findings: see [id number] Pre Op Diagnosis: dysphagia and scrn colonoscopy Post-Op Diagnosis: same Anesthesia Technique: Moderate Sedation Primary Surgeon: William Harrell Pathology: egd bx Complications: None Condition: Good
--- NOTE | 2018-01-13 13:35 | PCM.POSTAN ---
POST ANESTHESIA ASSESSMENT - MENTAL STATUS Mental Status: Alert, Oriented - RESPIRATORY Respiratory Status: Respiratory Rate WNL, Airway Patent, O2 Saturation Stable - CARDIOVASCULAR CV Status: Pulse Rate WNL, Blood Pressure Stable - GASTROINTESTINAL GI Status: No Symptoms - PAIN Pain Score: 0 - POST OP HYDRATION Hydration Status: Adequate & Stable - OBSERVATIONS Free Text/Narrative:: Pt stable for discharge to phase II.
--- NOTE | 2018-01-13 13:49 | PCM48HPAN ---
Post Anesthesia Note - EVALUATION WITHIN 48HRS OF ANESTHETIC Vital Signs in Normal Range: Yes Patient Participated in Evaluation: Yes Respiratory Function Stable: Yes Airway Patent: Yes Cardiovascular Function Stable: Yes Hydration Status Stable: Yes Pain Control Satisfactory: Yes Nausea and Vomiting Control Satisfactory: Yes Mental Status Recovered: Yes Resp Rate: 18 - COMMENTS/OBSERVATIONS Free Text/Narrative:: Pt stable with no pain or nausea reported.
--- NOTE | 2018-01-13 14:30 | OR ---
SURGEON: William Harrell MD DATE OF PROCEDURE: 01/13/2018 PROCEDURES PERFORMED: Esophagogastroduodenoscopy with biopsy, and colonoscopy. PREOPERATIVE DIAGNOSES: Dysphagia and screening colonoscopy. POSTOPERATIVE DIAGNOSES: Esophagogastroduodenoscopy diagnosis: Gastroesophageal reflux disease. Colonoscopy diagnosis: Hemorrhoids. PROCEDURE IN DETAIL: EGD: The patient was taken to the endoscopy room, and with the DENTAL TECH, Diprivan was administered. A well-lubricated EGD scope was gently inserted through the oropharynx, down the esophagus, passing through the gastroesophageal junction, into the stomach. The mucosa was examined upon the passage. Any etiology will be noted. Once in the stomach, we continued to advance to the distal antrum, passed through the pylorus into the second portion of the duodenum. Again, the mucosa was examined for any abnormality and etiology. The scope was then retrieved back to the stomach and then retroflexed to look at the fundus of the stomach. If a biopsy was indicated, we will biopsy the antrum, body, and gastroesophageal junction. The air will be sucked out while the scope is retrieved to reduce the patient's discomfort. The patient tolerated the procedure well. There were no intraoperative complications. Dr. Harrell was present through the whole procedure. Prior to surgery, a time-out had been called, the patient identified, procedure identified and antibiotic administered. Colonoscopy procedure: The patient was taken to the endoscopy room. A time out was called, patient identified, and procedure identified. Diprivan was then administrated. Patient went from awake to sleep, hearing doctor talking or door closing is normal. Perineum inspection and digital examination were then performed. A well- lubricated colonoscope was gently inserted through the rectum, advanced past the rectosigmoid junction, the descending colon, splenic flexure, transverse colon, hepatic flexure, ascending colon, arrived to the cecum. Cecum was identified as dictated in the finding. Then the scope was carefully withdrawn while attention was paid to the mucosal surface for any abnormality. Air will be sucked out during the scope withdrawal. At the rectum, retroflexed to examine any rectal diseases, fistula or hemorrhoids. Patient tolerated procedure well. There were no intraoperative complications, and Dr. Harrell was present throughout the whole procedure. FINDINGS: EGD findings: 1. The patient is easily sedated with DENTAL TECH and Diprivan. The patient is soundly snoring. 2. Proximal oropharynx and proximal esophagus with history of disease, stricture, ulceration, AV malformation, or inflammation. Distal esophagus at GE junction shows mild salmon-color change consistent with acid reflux, mild to moderate. Stomach rugae is normal in appearance. Antrum is normal and duodenum was grossly normal. Retroflexed look at the fundus of stomach, there is no hiatal hernia. There is no blood and ulcer, but there is a lot of food particle pile in appearance in the stomach. It looked like digested food in the stomach, but there is no solid food in the stomach. Biopsy done at antrum, body, GE junction at 40 and sucked out the gas while the scope pulling out. Colonoscopy findings: 1. The patient is easily sedated with DENTAL TECH and Diprivan. The patient is soundly snoring. 2. Bowel prep is average to below average, so compromised study. Colon is rather straight forward. Cecum indicated by ileocecal fold, one-to-one indentation, light emittance, appendiceal orifice. Mucosa examined upon calling out with constant irrigation. The patient does not have diverticulosis, polyp, mass, growth, inflammation, stricture, ulceration, AV malformation, or blood, none of those. The patient has mild internal hemorrhoid and does look like there is a large skin tag and no tag at 6 o'clock of an opening. The patient would benefit from repeat colonoscopy in 10 years from today or if clinically indicated otherwise. MAURA / SRINATH /[id number]
[2018-01-13 15:09] VITALS: BP 114/70
== END 2018-01-13 14:00 | disposition home or self-care (01) ==
LOC: MW.SDS 11:23
PROVIDERS: ATTEND Surgery
DX: K20.9 Esophagitis, unspecified (principal); Z12.11 Encounter for screening for malignant neoplasm of colon; K64.8 Other hemorrhoids; K21.9 Gastro-esophageal reflux disease without esophagitis; E66.9 Obesity, unspecified; Z68.30 Body mass index [BMI] 30.0-30.9, adult
CPT/HCPCS: 43239; 45378; J2250; J2704; J3010; J7120; 88305; 88312

== ENCOUNTER 2018-07-08 21:36 | Emergency (ER) | payer BC, OTHER ==
[2018-07-08 21:49] VITALS: BP 130/90
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
== END 2018-07-08 22:17 ==
LOC: MW.ED 21:36
DX: Z04.1 Encounter for examination and observation following transport accident (principal); F17.210 Nicotine dependence, cigarettes, uncomplicated
CPT/HCPCS: 99283

== ENCOUNTER 2020-11-29 00:34 | Emergency (ER) | payer BC, OTHER | END 2020-11-29 02:33 | disposition left against medical advice (07) | LOC: MW.ED 00:34 | DX: Z53.21 Procedure and treatment not carried out due to patient leaving prior to being seen by health care provider (principal) ==

== ENCOUNTER 2020-11-30 18:42 | Emergency (ER) | payer BC, OTHER ==
[2020-11-30] MEDS ORDERED: Glucagon,Human Recombinant 1 MG Vial IVPUSH ONE (19:01)
--- NOTE | 2020-11-30 19:01 | EDM.PDOC ---
ED HPI GENERAL MEDICAL PROBLEM - General Stated Complaint: CHOKING Time Seen by Provider: 11/30/20 18:52 Source of Information: Reports: Patient History Limitations: Reports: No Limitations - History of Present Illness INITIAL COMMENTS - FREE TEXT/NARRATIVE: HISTORY AND PHYSICAL: History of present illness: Patient is a 55-year-old male who presents to the emergency room with a piece of beef stuck in his esophagus. The patient has attempted Coke and other carbonated beverages for the last 1.5 hours without success. The patient is unable to swallow and is just spitting out his saliva. Patient has a history of this at least 3-4 times previous required surgical retrieval. Patient denies any fever, chills, headache, change in vision, syncope or near syncope. Denies any chest pain, back pain, shortness of breath or cough. Denies any abdominal pain, nausea, vomiting, diarrhea, constipation or dysuria. Has not noted any blood in urine or stool. Patient has been eating and drinking appropriately. Review of systems: As per history of present illness and below otherwise all systems reviewed and negative. Past medical history: As per history of present illness and as reviewed below otherwise noncontributory. Surgical history: As per history of present illness and as reviewed below otherwise noncontributory. Social history: See social history for further information Family history: As per history of present illness and as reviewed below otherwise noncontributory. Physical exam: General: Well developed and well nourished. Alert and orientated x 3. Nontoxic in appearance and in no acute distress. Vital signs are stable and have been reviewed by me. Nursing notes were reviewed. HEENT: Atraumatic, normocephalic, pupils equal and reactive bilaterally, negative for conjunctival pallor or scleral icterus, mucous membranes moist, TMs normal bilaterally, throat clear, neck supple, nontender, trachea midline. Drooling due to unable to swallow. No meningeal signs. No hot potato voice noted. Lungs: Clear to auscultation bilaterally. No wheezes, rales, or rhonchi. Chest nontender. Normal work of breathing, no accessory muscles used. Heart: S1S2, regular rate and rhythm without overt murmur, gallops, or rubs. No JVD. No peripheral edema Abdomen: Soft, nondistended, nontender. Normoactive bowel sounds. Negative for masses or costovertebral tenderness. Skin: Intact, warm, dry. No lesions or rashes noted. Hematologic: No petechiae or purpra. Mucosa appropriate color and normal nail bed color and refill. Extremities: Atraumatic, moves all extremities per self without difficulty or deficits, negative for cords or calf pain. Neurovascular unremarkable. Left 5th toe with tenderness and erythema. Neuro: Awake, alert, oriented. Cranial nerves II through XII unremarkable. Cerebellum unremarkable. Motor and sensory unremarkable throughout. Exam nonfocal. Psychiatric: Mood and affect are appropriate. Normal thought process. Answering questions appropriately. Notes: *This patient was seen and evaluated during the 2019 SARS-CoV-2 novel coronavirus pandemic period. Community viral transmission is ongoing at time of this encounter and the emergency department is operating under pandemic response procedures. The patient is a 55-year-old male who presents with piece of meat stuck in his esophagus. The patient states that he tried for an hour and a half with car bonated beverages such as cold without success. The patient has a history of esophageal foreign bodies requiring surgical retrieval. I will try glucagon 1 mg IV if that is unsuccessful I will call general surgeon for possible retrieval. The patient is aware of the plan. Dr. Hooper, general surgeon, notified of patient and patient's condition. The glucagon was unsuccessful. Dr. Hooper will come in to examine the patient. I have talked with the patient about today's findings, in addition to providing specific details for plan of care. Reassessment at the time of disposition demonstrates that the patient is in no acute distress. The patient is stable for discharge, counseling was provided and we discussed in great detail signs and symptoms that would prompt them to return to the Emergency Department. Medication, follow up and supportive care measures were reviewed and discussed. Voices understanding and is agreeable to plan of care. Denies any further questions or concerns at this time. Therapeutics: Glucagon 1 mg IV Prescription:Prednisone 40mg po daily for 5 days Impression: Esophageal food action, gout Plan: 1. You were evaluated today on an emergent basis. Your complaints of food bolus stuck in your throat was treated with glucagon 1 mg IV and a coke, which took care of the problem. As this continues to be a problem you might need to see a nurses' association counselor and have an EGD done to address if you have any strictures. We redressed your right index finger dressing. I treated your left fifth toe gout with Solu-Medrol 125 mg which is a steroid. I have prescribed you prednisone again this is a steroid 40 mg for 5 days. Please ensure that you follow-up with your primary care and continue to take your medications. 2. You can alternate Tylenol and ibuprofen as needed for pain and fever management. 3. We encourage you to follow up with your primary care provider and/or recommended specialist in the next few days for re-evaluation and further care/management. 4. If your symptoms should worsen, new symptoms develop or any of the signs and symptoms we discussed should arise please return to the emergency room or call 911 (if needed). Definitive disposition and diagnosis as appropriate pending reevaluation and review of above. general Pain Score (Numeric/FACES): 7 - Related Data Allergies Allergy/AdvReac Type Severity Reaction Status Date / Time No Known Allergies Allergy Verified 11/30/20 19:00 Home Meds: Home Meds . [No Known Home Meds] 04/21/17 [History] Past Medical History - Past Health History Medical/Surgical History: Denies Medical/Surgical History HEENT History: Reports: None Cardiovascular History: Reports: None Respiratory History: Reports: None Gastrointestinal History: Reports: Other (See Below) Other Gastrointestinal History: dysphagia, esophageal stricture with history of EGD for FB multiple times Genitourinary History: Reports: None Musculoskeletal History: Reports: Fracture Other Musculoskeletal History: hx fx wrist Neurological History: Reports: None Psychiatric History: Reports: None Endocrine/Metabolic History: Reports: Obesity/BMI 30+ Hematologic History: Reports: None Immunologic History: Reports: None Oncologic (Cancer) History: Reports: None Dermatologic History: Reports: None - Infectious Disease History Infectious Disease History: Reports: None - Past Surgical History Head Surgeries/Procedures: Reports: None GI Surgical History: Reports: EGD Social & Family History - Family History Family Medical History: No Pertinent Family History - Caffeine Use Caffeine Use: Reports: Coffee ED ROS GENERAL - Review of Systems Review Of Systems: Comprehensive ROS is negative, except as noted in HPI. ED EXAM, GENERAL - Physical Exam Exam: See Below (See dictation) Course - Vital Signs Last Recorded V/S: Last Vital Signs Temp 98 F 11/30/20 18:56 Pulse 66 11/30/20 19:58 Resp 18 11/30/20 19:58 BP 150/95 H 11/30/20 19:58 Pulse Ox 96 11/30/20 19:58 - Orders/Labs/Meds Meds: Medications Discontinued Medications Generic Name Dose Route Start Last Admin Trade Name Janelle PRDonita Reason Stop Dose Admin Glucagon 1 mg 11/30/20 19:01 11/30/20 19:06 Glucagon,Human Recombinant 1 Mg Vial IVPUSH 11/30/20 19:02 1 mg ONETIME ONE Administration Glucagon Confirm 11/30/20 19:07 11/30/20 19:16 Glucagon,Human Recombinant 1 Mg Vial Administered 11/30/20 19:08 Not Given Dose 1 mg .ROUTE .STK-MED ONE Methylprednisolone Sodium Succinate 125 mg 11/30/20 19:50 11/30/20 19:52 Methylprednisolone Sodium Succinate 125 Mg/2 Ml Sdv IVPUSH 11/30/20 19:51 125 mg NOW STA Administration Departure - Departure Time of Disposition: 19:50 Disposition: Home, Self-Care 01 Condition: Good Clinical Impression: Food impaction of esophagus Qualifiers: Encounter type: initial encounter Qualified Code(s): T18.128A - Food in esophagus causing other injury, initial encounter Gout Qualifiers: Gout site: toe Gout etiology: idiopathic Chronicity: chronic Laterality: left Presence of tophus: without tophus Qualified Code(s): M1A.0720 - Idiopathic chronic gout, left ankle and foot, without tophus (tophi) - Discharge Information *PRESCRIPTION DRUG MONITORING PROGRAM REVIEWED*: Not Applicable *COPY OF PRESCRIPTION DRUG MONITORING REPORT IN PATIENT GUSTAVO: Not Applicable Instructions: Low-Purine Eating Plan, Swallowed Foreign Body, Adult, [id number] Referrals: PCP,None [Primary Care Provider] - Forms: ED Department Discharge Additional Instructions: The following information is given to patients seen in the emergency department who are being discharged to home. This information is to outline your options for follow-up care. We provide all patients seen in our emergency department with a follow-up referral. The need for follow-up, as well as the timing and circumstances, are variable depending upon the specifics of your emergency department visit. If you don't have a primary care physician on staff, we will provide you with a referral. We always advise you to contact your personal physician following an emergency department visit to inform them of the circumstance of the visit and for follow-up with them and/or the need for any referrals to a consulting specialist. The emergency department will also refer you to a specialist when appropriate. This referral assures that you have the opportunity for follow-up care with a specialist. All of these measure are taken in an effort to provide you with optimal care, which includes your follow-up. Under all circumstances we always encourage you to contact your private physician who remains a resource for coordinating your care. When calling for follow-up care, please make the office aware that this follow-up is from your recent emergency room visit. If for any reason you are refused follow-up, please contact the [facility] Emergency Department at and asked to speak to the emergency department charge nurse. [facility] - Primary Care [address] [place] [id number] [facility] [address] [place] [id number] Plan: 1. You were evaluated today on an emergent basis. Your complaints of food bolus stuck in your throat was treated with glucagon 1 mg IV and a coke, which took care of the problem. As this continues to be a problem you might need to see a nurses' association counselor and have an EGD done to address if you have any strictures. We redressed your right index finger dressing. I treated your left fifth toe gout with Solu-Medrol 125 mg which is a steroid. I have prescribed you prednisone again this is a steroid 40 mg for 5 days. Please ensure that you follow-up with your primary care and continue to take your medications. 2. You can alternate Tylenol and ibuprofen as needed for pain and fever management. 3. We encourage you to follow up with your primary care provider and/or recommended specialist in the next few days for re-evaluation and further care/management. 4. If your symptoms should worsen, new symptoms develop or any of the signs and symptoms we discussed should arise please return to the emergency room or call 911 (if needed). Sepsis Event Note (ED) - Focused Exam Vital Signs: Vital Signs Temp Pulse Resp BP Pulse Ox 11/30/20 19:58 66 18 150/95 H 96 11/30/20 18:56 98 F 73 162/92 H 95
[2020-11-30] MEDS ORDERED: Glucagon,Human Recombinant 1 MG Vial ONE (19:07)
[2020-11-30] MEDS ORDERED: methylPREDNISolone Sodium Succinate 125 MG/2 ML SDV IVPUSH STA (19:50)
[2020-11-30 20:32] VITALS: BP 150/95; PULSE 66
== END 2020-11-30 20:00 | disposition home or self-care (01) ==
LOC: MW.ED 18:42
DX: T18.128A Food in esophagus causing other injury, initial encounter (principal); M1A.0720 Idiopathic chronic gout, left ankle and foot, without tophus (tophi)
CPT/HCPCS: 96374; 96375; 99283; J1610; J2930

== ENCOUNTER 2023-01-23 02:36 | Emergency (ER) | payer BC, OTHER ==
[2023-01-23] MEDS ORDERED: Ondansetron 4 MG/2 ML SDV IVPUSH ONE (02:44)
[2023-01-23] MEDS ORDERED: fentaNYL 50 MCG/ML SDV IVPUSH ONE (02:44)
[2023-01-23] MEDS ORDERED: Sodium Chloride 0.9% 10 ML Syringe FLUSH PRN (02:44)
[2023-01-23] MEDS ORDERED: Sodium Chloride 0.9% 2.5 ML Syringe FLUSH PRN (02:44)
[2023-01-23] MEDS ORDERED: Diphtheria,Pertussis(Acell),Tetanus Vaccine 0.5 ML Syringe IM ONE (02:44)
[2023-01-23 02:58] LABS: BASOPHILS ABSOLUTE AUTO 0.1 K/uL (0.0-0.1); EOSINOPHILS ABSOLUTE AUTO 0.4 K/uL (0.0-0.7); HEMATOCRIT 41.7 % (38.0-50.0); HEMOGLOBIN 14.5 g/dL (13.0-17.0); LYMPHOCYTES ABSOLUTE AUTO 2.4 K/uL (0.6-2.4); LYMPHOCYTES PERCENT AUTO 40.6 % (16.0-40.0); MEAN CORPUSCULAR HEMOGLOBIN 31.4 pg (27.0-32.0); MEAN CORPUSCULAR HGB CONC 34.8 g/dL (31.0-37.0); MEAN CORPUSCULAR VOLUME 90.3 fL (80.0-98.0); MONOCYTES ABSOLUTE AUTO 0.3 K/uL (0.0-0.8); MONOCYTES PERCENT AUTO 4.5 % (0.0-15.0); NEUTROPHILS ABSOLUTE AUTO 2.8 K/uL (1.4-5.7); NEUTROPHILS PERCENT AUTO 47.9 % (48.0-80.0); NRBC ABSOLUTE 0 K/uL; PLATELET COUNT,PLT 209 K/uL (150-400); RED BLOOD CELL COUNT 4.62 M/uL (4.50-5.90); WHITE BLOOD CELL COUNT,WBC 5.79 K/uL (4.0-11.0)
[2023-01-23 03:12] LABS: INR 1.09 (0.86-1.11); PTT,PARTIAL THROMBOPLSTIN TIME 25.3 SEC (23.9-30.7)
[2023-01-23] MEDS ORDERED: Iopamidol 755 MG/ML 500 ML Multipack Bottle IVPUSH ONE (03:12)
[2023-01-23 03:25] LABS: A/G RATIO 0.9 (0.9-1.6); ALBUMIN 3.7 g/dL (3.4-5.0); BILIRUBIN TOTAL 0.4 mg/dL (0.2-1.0); CALCIUM 8.1 mg/dL (8.5-10.1); CARBON DIOXIDE,CO2 24.8 mmol/L (21.0-32.0); EST CRCL DRUG DOSING (CG) 83.14 mL/min; POTASSIUM,K 3.6 mmol/L (3.5-5.1); PROTEIN TOTAL,TP 7.7 g/dL (6.4-8.2)
[2023-01-23] MEDS ORDERED: Naloxone 0.4 MG/ML SDV IVPUSH PRN (03:36)
[2023-01-23] MEDS ORDERED: Lidocaine 4% 1 each Patch TOP STA (03:36)
[2023-01-23] MEDS ORDERED: Morphine 2 MG/ML SYRINGE IVPUSH ONE (03:36)
[2023-01-23 04:14] VITALS: BP 112/75; PULSE 78
[2023-01-23] MEDS ORDERED: Acetaminophen/HYDROcodone 325-5 MG Tab PO ONE (04:44)
== END 2023-01-23 05:00 | disposition home or self-care (01) ==
LOC: MW.ED 02:36
DX: S06.0X9A Concussion with loss of consciousness of unspecified duration, initial encounter (principal); S22.32XA Fracture of one rib, left side, initial encounter for closed fracture; S01.01XA Laceration without foreign body of scalp, initial encounter; E66.9 Obesity, unspecified; Z23 Encounter for immunization; W10.9XXA Fall (on) (from) unspecified stairs and steps, initial encounter
CPT/HCPCS: 36415; 70450; 71045; 71260; 72125; 74177; 80053; 82550; 83690; 84484; 85025; 85610; 85730; 86850; 86900; 86901; 90471; 90715; 93005; 96374; 96375; 99284; A9270; J2270; J2405; J3010; J3490; Q9967; 93010; 99291

== ENCOUNTER 2024-06-08 06:44 | Emergency (ER) | payer BC, OTHER ==
[2024-06-08 07:12] LABS: BASOPHILS ABSOLUTE AUTO 0.05 K/uL (0.00-0.20); BASOPHILS PERCENT AUTO 0.4 % (0.0-1.0); EOSINOPHILS PERCENT AUTO 0.8 % (0.0-6.0); HEMATOCRIT 41.2 % (42.0-52.0); HEMOGLOBIN 14.5 g/dL (14.0-18.0); IMMATURE GRAN ABSOLUTE AUTO 0.15 K/uL (0.00-0.05); IMMATURE GRAN PERCENT AUTO 1.2 % (0.0-0.4); LYMPHOCYTES ABSOLUTE AUTO 1.26 K/uL (1.00-4.80); LYMPHOCYTES PERCENT AUTO 10.2 % (24.0-44.0); MEAN CORPUSCULAR HEMOGLOBIN 31.1 pg (28.0-32.0); MEAN CORPUSCULAR HGB CONC 35.2 g/dL (32.0-36.0); MEAN CORPUSCULAR VOLUME 88.4 fL (83.0-99.0); MEAN PLATELET VOLUME 9.8 fL (9.4-12.4); MONOCYTES ABSOLUTE AUTO 0.46 K/uL (0.00-0.80); MONOCYTES PERCENT AUTO 3.7 % (0.0-8.0); NEUTROPHILS ABSOLUTE AUTO 10.38 K/uL (1.80-7.70); NEUTROPHILS PERCENT AUTO 83.7 % (41.0-71.0); PLATELET COUNT,PLT 196 K/uL (150-400); RED BLOOD CELL COUNT 4.66 M/uL (4.52-5.90)
[2024-06-08 07:40] LABS: BILIRUBIN TOTAL 0.6 mg/dL (0.2-1.0); CALCIUM 8.6 mg/dL (8.5-10.1); CARBON DIOXIDE,CO2 23.2 mmol/L (21.0-32.0); CREATININE 1.1 mg/dL (0.8-1.3); EST CRCL DRUG DOSING (CG) 66.77 mL/min; POTASSIUM,K 4.1 mmol/L (3.5-5.1); PROTEIN TOTAL,TP 8.1 g/dL (6.4-8.2)
[2024-06-08] MEDS: Diphtheria,Pertussis(Acell),Tetanus Vaccine 0.5 ML Syringe IM ONE (08:00)
[2024-06-08 13:41] VITALS: BP 109/56; PULSE 89
== END 2024-06-08 13:41 | disposition home or self-care (01) ==
LOC: MW.ED 06:44
DX: S62.515A Nondisplaced fracture of proximal phalanx of left thumb, initial encounter for closed fracture (principal); S43.005A Unspecified dislocation of left shoulder joint, initial encounter; S22.42XA Multiple fractures of ribs, left side, initial encounter for closed fracture; S01.01XA Laceration without foreign body of scalp, initial encounter; I10 Essential (primary) hypertension; Z79.899 Other long term (current) drug therapy; W10.9XXA Fall (on) (from) unspecified stairs and steps, initial encounter; Z23 Encounter for immunization
CPT/HCPCS: 12002; 36415; 70450; 70450-26; 71260; 71260-26; 72125; 72125-26; 73030-26-LT; 73030-LT; 73140-26-F5; 73140-F5; 74177; 74177-26; 80053; 80307; 85025; 90471; 90715; 99284; 99284-25

== ENCOUNTER 2024-06-14 08:52 | Day surgery (SDC) | payer BC, OTHER ==
[~2024-06-14 08:52] MED LIST changes: +Albuterol 0.083% 2.5 MG/3 ML Neb Soln NEB PRN; +HYDROmorphone 1 MG/ML Syringe IVPUSH PRN; -Lactated Ringers 1,000 ML IV SCH; +Metoclopramide 10 MG/2 ML SDV IVPUSH PRN; +Morphine 2 MG/ML SYRINGE IVPUSH PRN; +Naloxone 0.4 MG/ML SDV IVPUSH PRN; +Ondansetron 4 MG/2 ML SDV IVPUSH PRN; +Phenylephrine HCl In 0.9% NaCl 1 MG/10 ML Syringe IVPUSH PRN; +ceFAZolin 2 GM in Sodium Chloride 0.9% 50 ML IV ONE; +fentaNYL 50 MCG/ML SDV IVPUSH PRN
[2024-06-14] MEDS: Lactated Ringers 1,000 ML IV SCH (09:10)
[2024-06-14] MEDS ORDERED: Lidocaine 1% 5 ML VIAL ONE (10:30)
[2024-06-14] MEDS ORDERED: propofoL 500 MG/50 ML 50 ML ONE (10:56)
[2024-06-14] MEDS ORDERED: Midazolam 1 MG/ML 2 ML SDV ONE (10:56)
[2024-06-14] MEDS ORDERED: fentaNYL 100 MCG/2 ML SDV ONE (10:56)
[2024-06-14] MEDS ORDERED: ceFAZolin 2 GM Vial ONE (11:16)
[2024-06-14 12:37] VITALS: BP 131/69; PULSE 59
== END 2024-06-14 12:40 | disposition home or self-care (01) ==
LOC: MW.SDS 08:52
PROVIDERS: ATTEND Orthopaedic Surgery
DX: S62.211A Bennett's fracture, right hand, initial encounter for closed fracture (principal); I10 Essential (primary) hypertension; K21.9 Gastro-esophageal reflux disease without esophagitis; F17.220 Nicotine dependence, chewing tobacco, uncomplicated; F17.290 Nicotine dependence, other tobacco product, uncomplicated; Z79.899 Other long term (current) drug therapy; X58.XXXA Exposure to other specified factors, initial encounter
CPT/HCPCS: 26650; 64417; 76000; J0131; J0690; J2250; J2704; J3010; J7120; J3490

== ENCOUNTER 2024-07-06 11:01 | Day surgery (SDC) | payer BC, OTHER ==
[~2024-07-06 11:01] MED LIST changes: -ceFAZolin 2 GM in Sodium Chloride 0.9% 50 ML IV ONE
[2024-07-06] MEDS: Lactated Ringers 1,000 ML IV SCH (11:44)
[2024-07-06] MEDS ORDERED: ceFAZolin 2 GM in Sodium Chloride 0.9% 50 ML IV ONE (12:00)
[2024-07-06] MEDS ORDERED: Ondansetron 4 MG/2 ML SDV ONE (12:05)
[2024-07-06] MEDS ORDERED: Acetaminophen 1,000 MG/100 ML Infusion Bottle Premix ONE (12:05)
[2024-07-06] MEDS ORDERED: fentaNYL 100 MCG/2 ML SDV ONE (12:05)
[2024-07-06] MEDS ORDERED: Lidocaine 2% 5 ML SDV ONE (12:05)
[2024-07-06] MEDS ORDERED: ceFAZolin 2 GM Vial ONE (12:05)
[2024-07-06] MEDS ORDERED: ePHEDrine 50 MG/ML SDV ONE (12:05)
[2024-07-06] MEDS ORDERED: Propofol 500 MG/50 ML SDV ONE (12:05)
[2024-07-06] MEDS ORDERED: Bupivacaine 0.25% 30 ML SDV ONE (12:52)
[2024-07-06] MEDS: Acetaminophen/HYDROcodone 325-5 MG Tab PO ONE (14:04)
[2024-07-06 14:20] VITALS: BP 126/80; PULSE 58
== END 2024-07-06 14:05 | disposition home or self-care (01) ==
LOC: MW.SDS 11:01
PROVIDERS: ATTEND Orthopaedic Surgery
DX: T84.59XA Infection and inflammatory reaction due to other internal joint prosthesis, initial encounter (principal); I10 Essential (primary) hypertension; K21.9 Gastro-esophageal reflux disease without esophagitis; Z79.899 Other long term (current) drug therapy; Y83.1 Surgical operation with implant of artificial internal device as the cause of abnormal reaction of the patient, or of later complication, without mention of misadventure at the time of the procedure
CPT/HCPCS: 11044; A9270; J0131; J0665; J0690; J2405; J2704; J3010; J7120; 01820; J3490

== ENCOUNTER 2024-07-26 06:26 | Day surgery (SDC) | payer BC, OTHER ==
[2024-07-26] MEDS: Lactated Ringers 1,000 ML IV SCH (06:50)
[2024-07-26] MEDS ORDERED: Propofol 200 MG/20 ML SDV ONE (07:21)
[2024-07-26] MEDS ORDERED: Lidocaine 2% 5 ML SDV ONE (07:22)
[2024-07-26] MEDS ORDERED: fentaNYL 100 MCG/2 ML SDV ONE (07:22)
[2024-07-26] MEDS ORDERED: Midazolam 1 MG/ML 2 ML SDV ONE (07:22)
[2024-07-26] MEDS ORDERED: Bupivacaine 0.5% 30 ML SDV ONE (07:35)
[2024-07-26] MEDS ORDERED: ceFAZolin 1 GM Vial ONE (07:49)
[2024-07-26] MEDS ORDERED: Ondansetron 4 MG/2 ML SDV ONE (07:50)
[2024-07-26] MEDS ORDERED: ceFAZolin 2 GM in Sodium Chloride 0.9% 50 ML IV ONE (08:00)
[2024-07-26] MEDS ORDERED: Naloxone 0.4 MG/ML SDV IVPUSH PRN (08:13)
[2024-07-26] MEDS ORDERED: Ondansetron 4 MG/2 ML SDV IVPUSH PRN (08:13)
[2024-07-26] MEDS ORDERED: HYDROmorphone 1 MG/ML Syringe IVPUSH PRN (08:13)
[2024-07-26] MEDS ORDERED: Phenylephrine HCl In 0.9% NaCl 1 MG/10 ML Syringe IVPUSH PRN (08:13)
[2024-07-26] MEDS ORDERED: Albuterol 0.083% 2.5 MG/3 ML Neb Soln NEB PRN (08:13)
[2024-07-26] MEDS ORDERED: Morphine 2 MG/ML SYRINGE IVPUSH PRN (08:13)
[2024-07-26] MEDS ORDERED: fentaNYL 50 MCG/ML SDV IVPUSH PRN (08:13)
[2024-07-26] MEDS ORDERED: Metoclopramide 10 MG/2 ML SDV IVPUSH PRN (08:13)
[2024-07-26 09:39] VITALS: BP 105/62; PULSE 56
== END 2024-07-26 09:15 | disposition home or self-care (01) ==
LOC: MW.SDS 06:26
PROVIDERS: ATTEND Orthopaedic Surgery
DX: S62.211A Bennett's fracture, right hand, initial encounter for closed fracture (principal); I10 Essential (primary) hypertension; K21.9 Gastro-esophageal reflux disease without esophagitis; F17.290 Nicotine dependence, other tobacco product, uncomplicated; Z79.899 Other long term (current) drug therapy; X58.XXXA Exposure to other specified factors, initial encounter
CPT/HCPCS: 26320; 76000; J0131; J0665; J0690; J2003; J2250; J2704; J3010; J7120; 01830; J2405